=== PATIENT | female | born 1955 | race American Indian/Alaskan Native ===

== ENCOUNTER 2017-04-07 19:08 | Emergency (ER) | payer MEDICAID ==
--- NOTE | 2017-04-07 22:04 | Emergency Department Report ---
ED Fall HPI - General Chief Complaint: Fall Stated Complaint: LEFT HAND PAIN Time Seen by Provider: 04/07/17 21:58 Source: patient Mode of arrival: Wheelchair - History of Present Illness Initial Comments: 62-year-old female past medical history arthritis, tension presents with complaint of one month of left hand left shoulder and left hip pain. Patient states she fell out of the tub a month ago and has been experiencing pain since. States she landed on her left side, denies any loss of consciousness, denies any neck pain .Patient states she has been ambulatory. Denies any urinary incontinence and saddle paresthesias, denies upper or lower extremity paresthesias. Patient states that she wants a narcotic for her pain. States she went to her primary doctor and requested narcotics but he deferred her to the ER. Patient on exam is awake alert and oriented 3 states that her left shoulder and left hip are bothering her. I asked patient if she uses any drugs or alcohol patient adamantly denied both also denied smoking. Patient has overt scent of cigarette smoke on her. Patient states she has been taking Motrin and Flexeril with minimal relief of her pain. Patient is visibly ambulatory. Denies dysuria or increased urinary frequency. MD Complaint: fall Onset/Timin -: month(s) Fall From: standing Place Fall Occurred: home Loss of Consciousness: none Prolonged Down Time?: no Symptoms Prior to Fall: none Location: pelvis (pain on left side hip) Location - Extremities: Left: Shoulder (patient complains of chronic pain left shoulder), Hand (pain in left hand, patient states it is chronic) Severity scale (0 -10): 6 Quality: aching Context: tripped/slipped Associated Symptoms: denies - Related Data Home Medications Medication Instructions Recorded Confirmed Last Taken NIFEdipine XL [Procardia Xl] 60 mg PO QDAY 04/07/17 04/07/17 1 Day Ago Allergies Allergy/AdvReac Type Severity Reaction Status Date / Time No Known Allergies Allergy Verified 04/07/17 20:00 ED Review of Systems ROS: Stated complaint: LEFT HAND PAIN Other details as noted in HPI Constitutional: denies: chills, fever Eyes: denies: eye pain, eye discharge, vision change ENT: denies: ear pain, throat pain Respiratory: denies: cough, shortness of breath, wheezing Cardiovascular: denies: chest pain, palpitations Endocrine: no symptoms reported Gastrointestinal: denies: abdominal pain, nausea, diarrhea Genitourinary: denies: urgency, dysuria, discharge Musculoskeletal: denies: back pain, joint swelling, arthralgia Skin: denies: rash, lesions Neurological: denies: headache, weakness, paresthesias Psychiatric: denies: anxiety, depression Hematological/Lymphatic: denies: easy bleeding, easy bruising ED Past Medical Hx - Past Medical History Previous Medical History?: Yes Hx Hypertension: Yes - Surgical History Past Surgical History?: Yes Hx Cholecystectomy: Yes Additional Surgical History: c section x3. left hand - Social History Smoking Status: Never Smoker Substance Use Type: None - Medications Home Medications: Home Medications Medication Instructions Recorded Confirmed Last Taken Type NIFEdipine XL [Procardia Xl] 60 mg PO QDAY 04/07/17 04/07/17 1 Day Ago History ED Physical Exam - General Limitations: No Limitations General appearance: alert, in no apparent distress - Head Head exam: Present: atraumatic, normocephalic - Eye Eye exam: Present: normal appearance, PERRL, EOMI - ENT ENT exam: Present: mucous membranes moist - Neck Neck exam: Present: normal inspection, full ROM - Respiratory Respiratory exam: Present: normal lung sounds bilaterally. Absent: respiratory distress - Cardiovascular Cardiovascular Exam: Present: regular rate, normal rhythm. Absent: systolic murmur, diastolic murmur, rubs, gallop - GI/Abdominal GI/Abdominal exam: Present: soft, normal bowel sounds - Extremities Exam Extremities exam: Present: normal inspection - Expanded Upper Extremity Exam Left Shoulder Exam: Present: normal inspection, full ROM (shoulder abduction and abduction painful to patient but intact), tenderness (patient has tenderness and anterior deltoid region) Upper Arm exam: Present: normal inspection Hand Wrist exam: Present: full ROM (range of motion fingers intact except for left pinky were patient has a trigger finger chronically) - Expanded Lower Extremity Exam Left Hip exam: Present: full ROM (patient is ambulatory can flex and extend her hip) , tenderness (some reproducible tenderness over deep palpation of the left iliac crest) Upper Leg exam: Present: normal inspection, full ROM Knee exam: Present: normal inspection, full ROM Lower Leg exam: Present: normal inspection, full ROM Foot/Toe exam: Present: normal inspection, full ROM Neuro vascular tendon exam: Present: no vascular compromise (distal dorsalis pedis and posterior tibial pulses intact) Gait: Positive: antalgic (patient is ambulating with a cane but is ambulating independently otherwise) 1 - Pain on palpation of the left hip ridge, no ecchymosis - Back Exam Back exam: Present: normal inspection - Neurological Exam Neurological exam: Present: alert, oriented X3 - Psychiatric Psychiatric exam: Present: normal affect, normal mood - Skin Skin exam: Present: warm, dry, intact, normal color. Absent: rash ED Course Vital Signs 04/07/17 19:53 Temperature 99.1 F Pulse Rate 84 Respiratory 18 Rate Blood Pressure 169/82 O2 Sat by Pulse 100 Oximetry ED Medical Decision Making - Medical Decision Making A/P: Musculoskeletal pain 1-patient is ambulatory with no neurological deficits on exam or history, x-ray show osteoarthritis but no fractures 2-patient has positive drug urine screen for THC and barbiturates, patient adamantly states she does not use narcotics but when I presented her with the results she did not have a response/rebuttal 1-nhxy-lod-counter Tylenol when necessary 4- follow-up with primary care and pain management Critical care attestation.: If time is entered above; I have spent that time in minutes in the direct care of this critically ill patient, excluding procedure time. 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 Disposition: DC- TO HOME OR SELFCARE Is pt being admited?: No Does the pt Need Aspirin: No Condition: Stable Instructions: Osteoarthritis (ED), Musculoskeletal Pain (ED) Additional Instructions: [email or web address] Referrals: [facility] [Provider Group] - 3-5 Days [facility], [facility] [Provider Group] - 3-5 Days [facility] [Provider Group] - 3-5 Days [facility] [Outside] - 3-5 Days Time of Disposition: 23:57
[2017-04-07 22:16] LABS: Urine Drugs of Abuse Note Disclamer
[2017-04-07] MEDS ORDERED: TYLENOL PO ONE (22:21)
[2017-04-07 22:31] LABS: Bacteria,Urine 1+ /HPF (Negative); Bilirubin,Urine NEG (Negative); Blood,Urine NEG (Negative); Ketones,Urine NEG (Negative); Leukocyte Esterase,Urine NEG (Negative); Mucus,Urine 1+ /HPF; Nitrite,Urine NEG (Negative)
--- NOTE | 2017-04-07 23:15 | XRay Report ---
FINAL REPORT PROCEDURE: XR HIP 2-3V LT TECHNIQUE: LEFT hip radiographs, AP and lateral views. HISTORY: s/p fall c/o left hip pain COMPARISON: No prior studies are available for comparison. FINDINGS: Fracture (s) and/or Dislocation(s): None . Joint space(s): Bilateral hip joints demonstrate normal joint spaces. There narrowing of the intervertebral disc space at L4-5. Soft tissues: Normal . Bone mineralization: Normal . Foreign bodies: None . IMPRESSION: No acute fracture. Degenerative disc disease at L4-5.
--- NOTE | 2017-04-07 23:17 | XRay Report ---
FINAL REPORT PROCEDURE: XR SHOULDER 2+V LT TECHNIQUE: LEFT shoulder radiographs including AP views in internal and external rotation. CPT 44606 HISTORY: s/p fall c/o left shoulder pain COMPARISON: No prior studies are available for comparison. FINDINGS: Fracture (s) and/or Dislocation(s): None . Joint space(s): Normal . Soft tissues: Normal . Bone mineralization: Normal . Foreign bodies: None . IMPRESSION: Normal Examination
--- NOTE | 2017-04-07 23:21 | XRay Report ---
FINAL REPORT PROCEDURE: XR HAND 2V LT TECHNIQUE: LEFT hand radiographs, AP and lateral views. CPT 39078-QG HISTORY: left hand pain COMPARISON: No prior studies are available for comparison. FINDINGS: Fracture (s) and/or Dislocation(s): None . Alignment: Normal . Joint space(s): Joint space narrowing is noted involving intercarpal, metacarpophalangeal and interphalangeal joints. 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 Soft tissues: Normal . Bone mineralization: Old healed fracture deformities are noted involving 4th metacarpal and 1st proximal phalanx. Foreign bodies: None . Internal fixation hardware is identified at the 1st metacarpophalangeal joint IMPRESSION: No acute fracture. Osteoarthritic changes involving intercarpal, metacarpophalangeal and interphalangeal joints.
[2017-04-08 00:31] VITALS: BP 159/84
== END 2017-04-08 00:32 | disposition home or self-care (01) ==
LOC: ED 19:08
DX: M19.90 Unspecified osteoarthritis, unspecified site (principal); M25.512 Pain in left shoulder; M25.552 Pain in left hip; I10 Essential (primary) hypertension
CPT/HCPCS: 80307; 81001